=== PATIENT | female | born 1995 | race Caucasian/White ===

== ENCOUNTER 2019-06-21 15:49 | Emergency (ER) | payer BC ==
[2019-06-21 16:39] VITALS: BP 112/70
--- NOTE | 2019-06-21 16:52 | UC ---
Complaint Female HPI - HPI Summary HPI Summary: Burning on urination and frequency for the past 2 days. - History Of Current Complaint Chief Complaint: UCGU Stated Complaint: URINARY Time Seen by Provider: 06/21/19 15:54 Hx Obtained From: Patient Hx Last Menstrual Period: 06/05/19 ?: No Onset/Duration: Gradual Onset Timing: Intermittent Severity Initially: Mild Severity Currently: Mild Pain Intensity: 3 Character: Burning Aggravating Factor(s): Urination Associated Signs And Symptoms: Positive: Negative - Allergies/Home Medications Allergies/Adverse Reactions: Allergies Allergy/AdvReac Type Severity Reaction Status Date / Time Penicillins Allergy Unknown Verified 06/21/19 16:40 Reaction Details Home Medications: Home Medications Biotin 1 mg PO DAILY 06/21/19 [History Confirmed 06/21/19] L.acidoph,Paracasei, B.lactis [Probiotic] 1 each PO DAILY 06/21/19 [History Confirmed 06/21/19] PMH/Surg Hx/FS Hx/Imm Hx Previously Healthy: Yes - Surgical History Surgical History: None - Family History Known Family History: Positive: Non-Contributory - Social History Alcohol Use: Occasionally Substance Use Type: None Smoking Status (MU): Never Smoked Tobacco Review of Systems All Other Systems Reviewed And Are Negative: Yes Genitourinary: Positive: Dysuria, Frequency, Urgency. Negative: Vaginal/Penile Burning, Vaginal/Penile Itching, Vaginal/Penile Discharge, Vaginal/Penile Pain, Vaginal/Penile Tenderness Is Patient Immunocompromised?: No Physical Exam Triage Information Reviewed: Yes Appearance: Well-Appearing, No Pain Distress, Well-Nourished Vital Signs: Initial Vital Signs Temp 97.9 F 06/21/19 16:35 Pulse 83 06/21/19 16:35 Resp 16 06/21/19 16:35 BP 112/70 06/21/19 16:35 Pulse Ox 98 06/21/19 16:35 Vital Signs Reviewed: Yes Respiratory: Positive: Lungs clear, Normal breath sounds, No respiratory distress, No accessory muscle use Cardiovascular: Positive: RRR, No Murmur, Pulses Normal, Brisk Capillary Refill Abdomen Description: Positive: Nontender, No Organomegaly, Soft. Negative: CVA Tenderness (R), CVA Tenderness (L) Bowel Sounds: Positive: Present Musculoskeletal Exam: Normal Neurological Exam: Normal Psychological Exam: Normal Skin Exam: Normal Complaint Female Dx - Course Course Of Treatment: Comfortable here. U/A positive for Leuk's. - Differential Dx/Diagnosis Provider Diagnosis: UTI (urinary tract infection) Discharge - Sign-Out/Discharge Documenting (check all that apply): Patient Departure All imaging exams completed and their final reports reviewed: No Studies - Discharge Plan Condition: Fair Disposition: HOME Prescriptions: Phenazopyridine TAB* [Pyridium 100 mg TAB*] 100 mg PO TID 2 Days #6 tab Sulfamethox/Trimethoprim DS* [Bactrim DS 800/160 TAB*] 1 tab PO BID 5 Days #9 tab Patient Education Materials: Urinary Tract Infection in Women (DC) Referrals: JOE Duarte [Primary Care Provider] - Additional Instructions: Increase fluids, Take the Bactrim with food. Go to the ER if you develop fever, chills, back pain, vomiting. Follow up with your primary care provider in 3-4 days if no improvement. - Billing Disposition and Condition Condition: FAIR Disposition: Home - Attestation Statements Provider Attestation: I was available for consult. This patient was seen by the LEOBARDO. Patient was not presented to, seen by or examined by me. Se Garrison MD
[2019-06-21] MEDS ORDERED: Phenazopyridine TAB* 100 MG PO ONE (16:56)
[2019-06-21] MEDS ORDERED: Sulfamethox/Trimethoprim DS 800/160* TAB PO ONE (16:56)
== END 2019-06-21 17:04 | disposition home or self-care (01) ==
LOC: UCCORT 15:49
DX: N39.0 Urinary tract infection, site not specified (principal); Z88.0 Allergy status to penicillin
CPT/HCPCS: 81003; 84702; 87086; 99212; A9270-GY; G0463